=== PATIENT | male | born 1980 | race Caucasian/White ===

== ENCOUNTER 2018-05-10 14:52 | Emergency (ER) | payer BC, OTHER ==
[2018-05-10] MEDS ORDERED: Ibuprofen TAB* 600 MG PO ONE (16:17)
[2018-05-10] MEDS ORDERED: Ondansetron ODT TAB* 4 MG PO ONE (16:17)
--- NOTE | 2018-05-10 16:56 | UC ---
Complaint Male HPI - HPI Summary HPI Summary: ONSET AT 11 AM TODAY OF LEFT FLANK PAIN WITH RADIATION TO THE LEFT GROIN. PAIN IS CONSTANT AND ASSOCIATED WITH SOME NAUSEA. HE DENIES DYSURIA, URINARY FREQUENCY OR URGENCY. STATES URINE LOOKs VERY DARK. NO FEVER. NO PREVIOUS PERSONAL HISTORY OF KIDNEY STONES BUT DAD DOES HAVE A HISTORY OF KIDNEY STONES. HAD SIMILAR PAIN YESTERDAY MORNING THAT LASTED FOR ABOUT AN HOUR. HAD ONE EPISODE OF VOMITING AT THAT TIME DUE TO NAUSEA. CANNOT FIND A COMFORTABLE POSITION. - History of Current Complaint Chief Complaint: UCAbdominalPain Stated Complaint: BACK PAIN Time Seen by Provider: 05/10/18 16:17 Hx Obtained From: Patient, Family/Site Leader - Onset/Duration: Gradual Onset, Lasting Hours, Still Present Timing: Constant Severity Initially: Moderate Severity Currently: Moderate Pain Intensity: 7 Pain Scale Used: 0-10 Numeric Location: Groin Character: Colicy Aggravating Factor(s): Nothing Associated Signs And Symptoms: Positive: Back Pain, Nausea, Vomiting(# Of Episodes =). Negative: Fever, Hematuria, Dysuria, Constipation, Blood in Stool - Allergies/Home Medications Allergies/Adverse Reactions: Allergies Allergy/AdvReac Type Severity Reaction Status Date / Time erythromycin base AdvReac Nausea And Verified 05/10/18 16:13 Vomiting Home Medications: Home Medications Acetaminophen [Tylenol] 2 tab PO ONCE PRN 05/10/18 [History Confirmed 05/10/18] PMH/Surg Hx/FS Hx/Imm Hx Previously Healthy: Yes - Surgical History Surgical History: None - Family History Family History: KIDNEY STONES - DAD - Social History Alcohol Use: Occasionally Substance Use Type: None Smoking Status (MU): Never Smoked Tobacco Review of Systems All Other Systems Reviewed And Are Negative: Yes Constitutional: Positive: Other - OVERAL MALAISE Respiratory: Positive: Negative Cardiovascular: Positive: Negative Gastrointestinal: Positive: Abdominal Pain, Vomiting, Nausea Genitourinary: Positive: Other - LEFT FLANK PAIN. Negative: Dysuria, Hematuria , Frequency Physical Exam Triage Information Reviewed: Yes Appearance: Well-Nourished, Pain Distress - MODERATE - PT PACING AROUND Vital Signs: Initial Vital Signs Temp 97.7 F 05/10/18 16:07 Pulse 100 05/10/18 16:07 Resp 18 05/10/18 16:07 BP 147/102 05/10/18 16:07 Pulse Ox 99 05/10/18 16:07 Laboratory Tests 05/10/18 16:23 POC Urine Color Sahra POC Urine Clarity Cloudy POC Urine pH 6.5 POC Ur Specif [place] 1.025 POC Urine Protein 1+ A POC Ur Glucose (UA) Negative POC Urine Ketones Trace A POC Urine Blood 3+ A POC Urine Nitrite Negative POC Urine Bilirubin Negative POC Urine Urobilinogen 0.2 POC U Leukocyte Esteras Negative Vital Signs Reviewed: Yes Eyes: Positive: Conjunctiva Clear ENT: Positive: Hearing grossly normal Neck: Positive: Supple Respiratory Exam: Normal Cardiovascular: Positive: Tachycardia Abdomen Description: Positive: Nontender, Soft. Negative: CVA Tenderness (R), CVA Tenderness (L), Distended, Guarding Musculoskeletal: Positive: No Edema Neurological: Positive: Alert Psychological: Positive: Age Appropriate Behavior Skin: Negative: Rashes Diagnostics - Radiology CT ABD/PELVIS W/O CONTRAST Radiology Interpretation Completed By: Radiologist Summary of Radiographic Findings: The proximal left ureter there is a 5 mm calcification with a [id number]-yh-[id number] degree of ipsilateral hydronephrosis. Complaint Male Course/Dx - Course Course Of Treatment: CT SCAN SHOWED A 5 MM STONE IN THE LEFT PROXIMAL URETER. HE HAS MILD TO MODERATE HYDRONEPHROSIS OF THE LEFT KIDNEY. WHILE IN THE HE DEVELOPED A TEMPERATURE OF 100.3. HE REMAINED TACHYCARDIC IN THE LOW 100S WITH PERSISTENT PAIN AND NAUSEA. SPOKE TO THERESA CORNELIUS AT THE [facility] AND WAS CONNECTED TO THE ON-CALL UROLOGIST DR. NAPOLEON HALE. HE ADVISED TRANSFER TO THE [facility] WHERE HE WILL INITIALLY BE SEEN BY DR. EVELIA PERKINS WITH UROLOGY CONSULTATION. PT TO BE NPO. - Differential Dx/Diagnosis Provider Diagnosis: Ureteral stone with hydronephrosis - Physician Notifications Discussed Patient Care With: Napoleon Nguyen MD - TRANSFER TO [facility] Time Discussed With Above Provider: 18:20 Instructed by Provider To: MD Will See In ED Discharge - Sign-Out/Discharge Documenting (check all that apply): Patient Departure All imaging exams completed and their final reports reviewed: Yes - Discharge Plan Condition: Stable Disposition: TRANS HIGHER LVL OF CARE FAC Patient Education Materials: Kidney Stones (ED), Hydronephrosis (ED) Referrals: José Denton [Primary Care Provider] - If Needed Additional Instructions: CT scan today: In the proximal left ureter there is a 5 mm calcification with a [id number] degree of ipsilateral hydronephrosis. [place] [facility] [place] FROM HERE FOR FURTHER EVALUATION. THEY ARE EXPECTING YOU. [id number], [place] YOU RECEIVED 30MG TORADOL IM PRIOR TO DEPARTURE. - Billing Disposition and Condition Condition: STABLE Disposition: Trans Higher Lvl of Care Fac
[2018-05-10] MEDS ORDERED: Ketorolac INJ* 60 MG/2 ML VIAL IM ONE (18:23)
[2018-05-10] MEDS ORDERED: Ketorolac INJ* 30 MG/ML 1 ML VIAL IM ONE (18:31)
[2018-05-10 18:58] VITALS: BP 149/94
== END 2018-05-10 18:50 | disposition short-term general hospital (02) ==
LOC: UCEAST 14:52
DX: N13.2 Hydronephrosis with renal and ureteral calculous obstruction (principal); Z88.1 Allergy status to other antibiotic agents
CPT/HCPCS: 74176; 81003; 96372; 99212; A9270-GY; G0463; J1885